=== PATIENT | female | born 1985 | race Caucasian/White ===

== ENCOUNTER 2024-01-17 05:14 | Inpatient (IN) ==
[2024-01-17 06:23] LABS: ABS Eosinophils 0.1 10^3/uL (0.0-0.5); ABS Lymphocytes 2.3 10^3/uL (1.0-4.8); ABS Monocytes 1.1 10^3/uL (0.0-0.9); ABS Neutrophils 4.6 10^3/uL (1.5-7.6); ABS Nucleated RBC 0.01 10^3/ul; Eosinophil % 1.5 %; Hematocrit 37.1 % (35-45); Hemoglobin 12.5 g/dL (11.5-14.3); Lymphocyte % 28.7 %; Mean Corpuscular Hgb Conc 33.6 g/dL (31-36); Mean Corpuscular Volume 95.2 fL (80-97); Mean Platelet Volume 8.6 fL (7.5-11.2); Nucleated Red Blood Cells % 0.1 %/100WBC (0.0-0.8); Platelet Count 204 10^3/uL (150-450); Red Cell Distribution Width 16.1 % (12-17); White Blood Count 8.1 10^3/uL (3.8-11.8)
[2024-01-17] MEDS: Lactated Ringers 1000 ml BAG 1,000 ML IV ONE (06:35)
[2024-01-17] MEDS: Buffered Lidocaine 1% SYRIN 1 ml INTRADERM ONE (07:35)
[2024-01-17] MEDS: ceFOXitin 2 GM IVPREMIX 2 GM/50 ML BAG IVPB ONE (07:47)
[2024-01-17] MEDS: Sodium Citrate/Citric Acid LIQ 15 ML UDC PO ONE (07:47)
[2024-01-17] MEDS: Lactated Ringers 1000 ml BAG 1,000 ML IV SCH (08:14)
[2024-01-17] MEDS ORDERED: Bupivacaine-MPF SPINAL 7.5 MG/ML - 2ML AMP ONE (08:46)
[2024-01-17] MEDS ORDERED: fentaNYL 100 mcg/2 ml 50 MCG/ML VIAL ONE (08:46)
[2024-01-17] MEDS ORDERED: Morphine PF AMP (0.5MG/ML) 5 MG/10 ML AMP ONE (08:46)
[2024-01-17 10:15] LABS: Urine Appearance Clear; Urine Bilirubin Negative (Negative); Urine Blood Negative (Negative); Urine Color Colorless; Urine Glucose Negative (Negative); Urine Ketones Negative (Negative); Urine Nitrite Negative (Negative); Urine Protein Negative (Negative); Urine Specific Gravity 1.006 (1.002-1.030); Urine Urobilinogen Negative (Negative); Urine pH 7.5 (5.0-8.0)
[2024-01-17 10:29] LABS: Urine Benzodiazepine Screen None Detected (None Detect); Urine Cannabinoids Screen None Detected (None Detect); Urine Opiates Screen None Detected (None Detect)
[2024-01-17] MEDS ORDERED: Glycerin ADULT 2.4 gm SUPP PR PRN (10:41)
[2024-01-17] MEDS ORDERED: Witch Hazel PAD JAR TOPICAL PRN (10:41)
[2024-01-17] MEDS ORDERED: Dibucaine 1% OINT 28.35 GM TUBE PR PRN (10:41)
[2024-01-17] MEDS ORDERED: Lactated Ringers 1000 ml BAG 1,000 ML IV SCH (11:00)
[2024-01-17] MEDS: Oxytocin in LR 20,000 MILLI.UNIT/1,000 ML BAG IV ONE (11:01)
[2024-01-17] MEDS: Oxytocin in LR 20,000 MILLI.UNIT/1,000 ML BAG IV SCH (11:02)
[2024-01-17] MEDS ORDERED: Naloxone 0.4 mg VIAL 0.4 mg/ml 1 ml VIAL IV PUSH PRN ×2 (11:06→14:21)
[2024-01-17] MEDS ORDERED: Metoclopramide 5 MG/ML VIAL (10 mg) IV PRN ×2 (11:06→14:21)
[2024-01-17] MEDS ORDERED: Ondansetron 4 mg VIAL 2 MG/ML 2 ml VIAL IV PRN ×2 (11:06→14:21)
[2024-01-17] MEDS: Acetaminophen IV 1 GM/100ML 1,000 MG/100 ML BAG IV PRN (11:40)
[2024-01-17] MEDS ORDERED: Acetaminophen IV 1 GM/100ML 1,000 MG/100 ML BAG IV PRN (14:21)
[2024-01-18 07:26] LABS: ABS Eosinophils 0.1 10^3/uL (0.0-0.5); ABS Lymphocytes 2.8 10^3/uL (1.0-4.8); ABS Monocytes 1.5 10^3/uL (0.0-0.9); ABS Neutrophils 7.5 10^3/uL (1.5-7.6); Eosinophil % 0.7 %; Hematocrit 28.2 % (35-45); Hemoglobin 9.5 g/dL (11.5-14.3); Lymphocyte % 23.4 %; Mean Corpuscular Hemoglobin 32.4 pg (27-33); Mean Corpuscular Hgb Conc 33.8 g/dL (31-36); Mean Corpuscular Volume 95.9 fL (80-97); Mean Platelet Volume 8.4 fL (7.5-11.2); Platelet Count 168 10^3/uL (150-450); Red Blood Count 2.94 10^6/uL (3.63-4.92); Red Cell Distribution Width 16.4 % (12-17); White Blood Count 11.9 10^3/uL (3.8-11.8)
[2024-01-19 07:42] VITALS: BP 114/59
[2024-01-19] MEDS: LoraTADine 10 mg TAB (NF) PO SCH (08:39)
== END 2024-01-19 12:30 | disposition home or self-care (01) | DRG 788 ==
LOC: MCHOB 05:14
PROVIDERS: ADMIT Obstetrics & Gynecology; ATTEND Obstetrics & Gynecology